=== PATIENT | female | born 1945 | race Caucasian/White ===

== ENCOUNTER 2019-07-14 18:09 | Inpatient (IN) | payer OTHER, MEDICAID ==
[~2019-07-14] VITALS: Ht 167.6 cm; Wt 82.4 kg
[2019-07-14 21:00] VITALS: BP 171/65
--- NOTE | 2019-07-14 21:00 | NUR ---
DIRECT ADMIT FROM [facility];ANEL MADE AWARE BECAUSE THE PATIENT IS EXPERIENCING LEFT FOOT PAIN AND NEEDS PAIN MEDICATION ORDERED. PT ALSO WANTS A SLEEPING PILL. PT CAME WITH ZERO ORDERS.
[2019-07-14 22:36] VITALS: BP 171/65
[2019-07-14] MEDS ORDERED: ACETAMINOPHEN 325 MG TAB PO PRN (22:45)
[2019-07-14] MEDS ORDERED: DEXTROSE (50%) 50ML SYRG IV PRN (22:45)
[2019-07-14] MEDS ORDERED: ONDANSETRON HCL 4 MG/2 ML VIAL IV PRN (22:45)
[2019-07-14 23:23] LABS: Eosinophils # (auto) 0.2 uL; Lymphocytes # (auto) 1.3 uL; Lymphocytes % (auto) 8.9 % (10.0-50.0)
[2019-07-14 23:26] LABS: Basophils # (auto) 0.2 uL; Basophils % (auto) 1.3 % (0.0-2.0); Eosinophils % (auto) 1.4 % (0.0-7.0); Hematocrit 30.5 % (36.0-46.0); Hemoglobin 10.1 g/dL (12.2-16.2); Mean Corpuscular Hemoglobin 28.6 pg (28.0-32.0); Mean Corpuscular Hgb Conc. 32.9 g/dL (32.0-36.0); Mean Corpuscular Volume 86.7 fL (80.0-100.0); Monocytes # (auto) 0.8 uL; Monocytes % (auto) 5.5 % (0.0-12.0); Neutrophils # (auto) 12.2 uL; Neutrophils % (auto) 82.9 % (37.0-80.0); Platelet Count (auto) 474 10^3/uL (140-450); Red Blood Cells 3.52 10^6/uL (4.0-5.20); Red Cell Distribution Width 15.9 % (11.8-14.3); White Blood Cell 14.7 10^3/uL (4.4-10.8)
[2019-07-14 23:40] LABS: Albumin 2.5 g/dL (3.4-5.0); BUN/Creatinine Ratio 25.9; Calcium 8.7 mg/dL (8.5-10.1); Potassium 4.5 mmol/L (3.5-5.1)
[2019-07-14 23:43] LABS: Bilirubin, Total 0.3 mg/dL (0.2-1.0); Total Protein 7.5 g/dL (6.4-8.2)
[2019-07-14] MEDS: HYDROcodone-ACET 5/325MG TAB PO PRN (23:46)
[2019-07-14] MEDS: TEMAZEPAM 15 MG CAP PO PRN (23:46)
[2019-07-14] MEDS ORDERED: METF-370 PO (23:47)
[2019-07-14] MEDS ORDERED: HYDR-531 PO (23:47)
[2019-07-15 00:05] LABS: CRP High Sensitivity 13.5 mg/dL (< 0.3)
--- NOTE | 2019-07-15 00:32 | NUR ---
WOUND CULTURE COLLECTED AND SENT;PHOTOGRAPHS TAKEN;NEW DRESSING APPLIED TO LEFT FOOT.
--- NOTE | 2019-07-15 03:00 | NUR ---
PT TRANSPORTED TO RADIOLOGY FOR CT SCAN OF LEFT FOOT.
--- NOTE | 2019-07-15 03:34 | NUR ---
PT BACK FROM RADIOLOGY;NEW DRESSING APPLIED.
[2019-07-15] MEDS: ACCU-CHEK COMFORT CURVE STRIP VI SCH ×4 (04:37→18:05)
[2019-07-15] MEDS: InsuLIN REG 1unit/0.01ml Soln (100units/ml) SC SCH ×4 (04:45→18:06)
[2019-07-15] MEDS: PANTOPRAZOLE 40 MG TAB PO SCH (04:46)
[2019-07-15] MEDS: HYDROcodone-ACET 5/325MG TAB PO PRN ×3 (04:47→20:02)
--- NOTE | 2019-07-15 05:08 | NUR ---
PT HAD LARGE BM IN THE BED;HANSEL CARE AND NEW LINEN. PT BACK IN BED.
[2019-07-15 05:38] VITALS: BP 167/72
[2019-07-15] MEDS: GABAPENTIN 400 MG CAP PO SCH ×3 (07:59→21:46)
[2019-07-15] MEDS ORDERED: VANCOMYCIN PER PHARMACY 0 MG IV SCH (08:45)
[2019-07-15] MEDS ORDERED: amLODIPine BESYLATE 5 MG TAB PO ONE (08:45)
[2019-07-15 08:50] VITALS: BP 181/73
[2019-07-15] MEDS ORDERED: cefTRIAXone 1GM/50ML D5W 50 ML IV SCH (09:00)
--- NOTE | 2019-07-15 09:00 | NUR ---
DR. MONCADA WAS IN TO SEE PT AND LEFT NEW ORDERS. PT NPO FOR POSSIBLE SURGERY AFTER 1700.
[2019-07-15] MEDS: metroNIDAZOLE 500MG/100ML 100 ML IV SCH ×2 (09:14→17:58)
[2019-07-15] MEDS: ENOXAPARIN SOD 40 MG/0.4 ML SYRINGE SC SCH (09:15)
[2019-07-15] MEDS: SILVER SULFADIAZINE 1 % TOPICAL CREAM 50GM TOP SCH (09:16)
[2019-07-15 09:21] LABS: Basophils # (auto) 0.1 uL; Eosinophils # (auto) 0 uL; Eosinophils % (auto) 0.3 % (0.0-7.0); Lymphocytes # (auto) 1.4 uL
[2019-07-15 09:22] LABS: Basophils % (auto) 0.5 % (0.0-2.0); Hematocrit 28.6 % (36.0-46.0); Hemoglobin 9.3 g/dL (12.2-16.2); Lymphocytes % (auto) 10.2 % (10.0-50.0); Mean Corpuscular Hemoglobin 28.2 pg (28.0-32.0); Mean Corpuscular Hgb Conc. 32.4 g/dL (32.0-36.0); Mean Corpuscular Volume 86.9 fL (80.0-100.0); Monocytes # (auto) 0.7 uL; Monocytes % (auto) 5.5 % (0.0-12.0); Neutrophils # (auto) 11.4 uL; Neutrophils % (auto) 83.5 % (37.0-80.0); Platelet Count (auto) 469 10^3/uL (140-450); Red Blood Cells 3.29 10^6/uL (4.0-5.20); Red Cell Distribution Width 15.6 % (11.8-14.3); White Blood Cell 13.7 10^3/uL (4.4-10.8)
[2019-07-15] MEDS ORDERED: INSULIN LANTUS (GLARGINE) 1 /0.01ml (100units/ml) SC ONE (09:30)
[2019-07-15 09:37] LABS: INR 0.95 (0.9-1.15); Partial Thromboplastin Time 30.4 sec (23.64-32.05)
[2019-07-15 09:51] LABS: BUN/Creatinine Ratio 20.2; Calcium 8.1 mg/dL (8.5-10.1); Potassium 4.4 mmol/L (3.5-5.1)
[2019-07-15] MEDS ORDERED: HCTZ 25 MG TAB PO SCH (10:00)
[2019-07-15] MEDS ORDERED: LEVOFLOXACIN 500MG 100 ML IV SCH (10:00)
[2019-07-15] MEDS ORDERED: amLODIPine BESYLATE 5 MG TAB PO SCH (10:00)
--- NOTE | 2019-07-15 11:45 | NUR ---
WOUND CARE NOTE: IN TO SEE PATIENT AT THIS TIME PER WOUND CARE CONSULT REQUEST. PATIENT NOTED TO HAVE WOUND UPON ADMIT. WOUND CONSULT ORDERED, WOUND PHOTOS TAKEN AT THAT TIME BY BEDSIDE NURSE FOR REFERENCE. PATIENT ADMITTED TO [facility] WITH DIAGNOSIS OF LEFT CALCANEOUS FRACTURE, LLE CELLULITIS. CURRENT DANTE SCORE IS 17. PATIENT HAS ORTHO AND PODIATRY CONSULTS PENDING. PATIENT STATES THAT SHE WAS WALKING AND FELT A SNAP TO HER LEFT FOOT. 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 WOUND MEASURES 4 X 3 X 2.4 CM. WOUND CULTURE WAS ALREADY COLLECTED AND SENT OFF TO LAB FOR PROCESSING. CLEANSED WOUND WITH NS, PATTED DRY WITH STERILE GAUZE. APPLIED THERAHONEY INTO OPEN WOUND BED AREAS. PACKED WOUND WITH 1/4 INCH PLAIN PACKING STRIP, LEAVING A TAIL OUT OF WOUND. COVERED WITH TELFA, WRAPPING FOOT/HEEL WITH KERLIX, STOCKINETTE. ELEVATED FOOT/HEEL UP ONTO PILLOW TO OFFLOAD PRESSURE. PATIENT HAS A DANTE SCORE OF 17. SHE CAN SELF TURN/REPOSITION SELF. NO OTHER WOUNDS NOTED. RECOMMEND: DAILY/PRN DRESSING CHANGE TO LEFT HEEL, ELEVATION OF LEFT FOOT/HEEL, DIETARY CONSULT, SKIN/WOUND CARE PLAN. WILL DEFER ALL OTHER RECOMMENDATIONS TO ORTHO AND PODIATRY. WOUND CARE TEAM WILL CONTINUE TO MONITOR. Addendum: 07/15/19 at 1850 by Yola Avila RN Amended: Links added.
[2019-07-15] MEDS: PIPERACILLIN-TAZOB 3.375GM 100 ML IV SCH ×3 (11:57→23:59)
[2019-07-15 13:44] VITALS: BP 151/72
--- NOTE | 2019-07-15 14:00 | NUR ---
NOTIFIED JET MAN BRAD AND N. RELIEF WORKER STEPHANIE THAT MRSA SCREEN WAS POSITIVE AND PT PUT ON CONTACT ISOLATION AND PT NOTIFIED OF SAME.
[2019-07-15] MEDS ORDERED: VANCOMYCIN 1,500 MG in D5W 5% 250 ML IV ONE (15:00)
[2019-07-15] MEDS: SODIUM CHLORIDE 0.9% 1,000 ML IV SCH (15:49)
[2019-07-15 16:43] VITALS: BP 144/61
--- NOTE | 2019-07-15 19:00 | NUR ---
DR. HOGAN WAS IN TO SEE PT AND MD LEFT NEW ORDERS.
[2019-07-15] MEDS: TEMAZEPAM 15 MG CAP PO PRN (21:46)
[2019-07-15] MEDS: MUPIROCIN 2% OINT 15gm or 22gm EACHNOSTRI SCH (21:47)
[2019-07-15 22:00] VITALS: BP 144/73
[2019-07-16] MEDS: ACCU-CHEK COMFORT CURVE STRIP VI SCH ×4 (00:12→18:08)
[2019-07-16] MEDS: InsuLIN REG 1unit/0.01ml Soln (100units/ml) SC SCH ×4 (00:12→18:08)
[2019-07-16] MEDS: metroNIDAZOLE 500MG/100ML 100 ML IV SCH ×3 (02:52→17:53)
[2019-07-16] MEDS: SODIUM CHLORIDE 0.9% 1,000 ML IV SCH ×2 (04:40→21:53)
[2019-07-16 05:00] VITALS: BP 148/76
[2019-07-16] MEDS: PIPERACILLIN-TAZOB 3.375GM 100 ML IV SCH ×3 (07:02→18:07)
[2019-07-16] MEDS: PANTOPRAZOLE 40 MG TAB PO SCH (07:02)
[2019-07-16] MEDS: HYDROcodone-ACET 5/325MG TAB PO PRN ×3 (07:02→21:24)
[2019-07-16] MEDS: GABAPENTIN 400 MG CAP PO SCH ×3 (07:02→21:07)
[2019-07-16 08:15] LABS: Basophils # (auto) 0.1 uL; Eosinophils # (auto) 0.4 uL; Eosinophils % (auto) 3.4 % (0.0-7.0); Hematocrit 27.4 % (36.0-46.0); Hemoglobin 9.2 g/dL (12.2-16.2); Lymphocytes # (auto) 2.1 uL; Mean Corpuscular Hemoglobin 28.9 pg (28.0-32.0); Mean Corpuscular Hgb Conc. 33.5 g/dL (32.0-36.0); Mean Corpuscular Volume 86.3 fL (80.0-100.0); Monocytes # (auto) 0.7 uL; Monocytes % (auto) 6.4 % (0.0-12.0); Neutrophils # (auto) 7.6 uL; Neutrophils % (auto) 70.2 % (37.0-80.0); Platelet Count (auto) 434 10^3/uL (140-450); Red Blood Cells 3.18 10^6/uL (4.0-5.20); White Blood Cell 10.9 10^3/uL (4.4-10.8)
[2019-07-16 08:31] LABS: BUN/Creatinine Ratio 22.6; Potassium 4.5 mmol/L (3.5-5.1)
[2019-07-16 09:00] VITALS: BP 135/61
[2019-07-16] MEDS: SILVER SULFADIAZINE 1 % TOPICAL CREAM 50GM TOP SCH (09:07)
[2019-07-16] MEDS: ENOXAPARIN SOD 40 MG/0.4 ML SYRINGE SC SCH (09:07)
[2019-07-16] MEDS: MUPIROCIN 2% OINT 15gm or 22gm EACHNOSTRI SCH ×2 (09:11→21:06)
[2019-07-16 09:30] VITALS: BP_SYST 131; BP_SYST 140; BP_DIAS 66; BP_DIAS 83
[2019-07-16] MEDS ORDERED: INSULIN LANTUS (GLARGINE) 1 /0.01ml (100units/ml) SC ONE (10:15)
[2019-07-16 13:00] VITALS: BP 131/66
--- NOTE | 2019-07-16 14:58 | NUR ---
NUTRITION CONSULT/ASSESSMENT NOTES Please refer to link notes of nutrition screen form filed under the intervention section of the plan of care for further details. Est. Needs: 1500 kcal to 1900 kcal (20-25 kcal/kgBW), 76 gms to 91 gms pro (1.0-1.2 gms/kgBW). Will continue to monitor pertinent labs and reassess nutrient need prn Thank you for this consult. Addendum: 07/16/19 at [address] Amended: Links added.
--- NOTE | 2019-07-16 15:00 | NUR ---
DRESSING TO LEFT FOOT DONE PER ORDER
[2019-07-16] MEDS: VANCOMYCIN 1,250 MG in D5W 5% 250 ML IV SCH (15:06)
[2019-07-16 17:00] VITALS: BP 139/52
--- NOTE | 2019-07-16 19:50 | NUR ---
Opening Shift Note Assumed care of patient, awake and alert, oriented x 4, follows direction. On room air with even and unlabored respirations. No S/S of distress or SOB. PICC to left upper arm intact and patent. Dressing to left foot clean, dry, and intact. Patient is able to turn independently in bed, sacrum intact, no redness noted. Bed low locked position with side rails up x 2 and call light within reach, bed alarm on. Instructed on POC and to call for assist PRN, will continue to monitor for changes Q1hr and PRN.
[2019-07-16 21:30] VITALS: BP 138/65
[2019-07-16] MEDS: INSULIN LANTUS (GLARGINE) 1 /0.01ml (100units/ml) SC SCH (21:57)
[2019-07-17] MEDS: ACCU-CHEK COMFORT CURVE STRIP VI SCH ×4 (00:03→18:19)
[2019-07-17] MEDS: PIPERACILLIN-TAZOB 3.375GM 100 ML IV SCH ×5 (00:03→18:19)
[2019-07-17] MEDS: InsuLIN REG 1unit/0.01ml Soln (100units/ml) SC SCH ×4 (00:03→18:19)
[2019-07-17] MEDS: metroNIDAZOLE 500MG/100ML 100 ML IV SCH ×3 (00:55→17:47)
[2019-07-17] MEDS: HYDROcodone-ACET 5/325MG TAB PO PRN ×3 (03:04→21:23)
[2019-07-17 05:05] VITALS: BP 159/71
[2019-07-17] MEDS: GABAPENTIN 400 MG CAP PO SCH ×3 (06:00→21:21)
[2019-07-17] MEDS: PANTOPRAZOLE 40 MG TAB PO SCH (06:09)
[2019-07-17] MEDS: hydrALAZINE HCL 20 MG/ML VL IV PRN (06:19)
[2019-07-17] MEDS: INSULIN LANTUS (GLARGINE) 1 /0.01ml (100units/ml) SC SCH ×2 (06:19→21:52)
--- NOTE | 2019-07-17 07:01 | NUR ---
Closing Note patient resting in bed with even and unlabored respirations, no s/s of distress. Bed low locked position with side rails up x 2 and call light within reach, bed alarm on. Endorsed care to day shift RN.
[2019-07-17 07:10] LABS: Basophils # (auto) 0.1 uL; Basophils % (auto) 0.8 % (0.0-2.0); Eosinophils # (auto) 0.3 uL; Eosinophils % (auto) 2.7 % (0.0-7.0); Hematocrit 26.9 % (36.0-46.0); Hemoglobin 8.9 g/dL (12.2-16.2); Lymphocytes # (auto) 1.9 uL; Lymphocytes % (auto) 15.7 % (10.0-50.0); Mean Corpuscular Hemoglobin 28.4 pg (28.0-32.0); Mean Corpuscular Hgb Conc. 32.9 g/dL (32.0-36.0); Mean Corpuscular Volume 86.3 fL (80.0-100.0); Monocytes # (auto) 0.8 uL; Monocytes % (auto) 6.5 % (0.0-12.0); Neutrophils # (auto) 9.1 uL; Neutrophils % (auto) 74.3 % (37.0-80.0); Platelet Count (auto) 436 10^3/uL (140-450); Red Blood Cells 3.11 10^6/uL (4.0-5.20); Red Cell Distribution Width 15.9 % (11.8-14.3); White Blood Cell 12.3 10^3/uL (4.4-10.8)
[2019-07-17 07:22] LABS: BUN/Creatinine Ratio 26.1; Calcium 7.9 mg/dL (8.5-10.1); Potassium 4.2 mmol/L (3.5-5.1)
--- NOTE | 2019-07-17 08:00 | NUR ---
Opening Shift Note Assumed care of patient, resting with eyes closed, wakes easily to sound/light touch. No S/S of distress/SOB or pain. Instructed on POC and to call for assist PRN, will continue to monitor for changes Q1hr and PRN.
[2019-07-17 09:01] VITALS: BP 182/60
[2019-07-17] MEDS: MUPIROCIN 2% OINT 15gm or 22gm EACHNOSTRI SCH ×2 (09:39→21:20)
[2019-07-17] MEDS: ENOXAPARIN SOD 40 MG/0.4 ML SYRINGE SC SCH (09:39)
[2019-07-17] MEDS: SILVER SULFADIAZINE 1 % TOPICAL CREAM 50GM TOP SCH (09:40)
[2019-07-17] MEDS: amLODIPine BESYLATE 5 MG TAB PO SCH (09:40)
[2019-07-17] MEDS ORDERED: IOHEXOL 350 MG/ML 100ML IJ ONE (09:46)
--- NOTE | 2019-07-17 10:03 | NUR ---
Angiogram Patient taken off floor in bed for Angiogram.
[2019-07-17] MEDS: SODIUM CHLORIDE 0.9% 1,000 ML IV SCH ×2 (11:00→21:52)
--- NOTE | 2019-07-17 12:17 | NUR ---
I&D PATIENT TAKEN DOWN IN BED FOR IRRIGATION AND DEBRIDEMENT OF LEFT FOOT ULCER. CONSENTS PRINTED OUT, SURGICAL CHECKLIST COMPLETED BY THIS NURSE. ALL PERSONAL BELONGINGS LEFT IN ROOM.
[2019-07-17 12:34] LABS: INR 0.97 (0.9-1.15); Partial Thromboplastin Time 31.9 sec (23.64-32.05)
[2019-07-17] MEDS ORDERED: ceFAZolin 1GM VL ONE (12:38)
[2019-07-17] MEDS ORDERED: MIDAZOLAM HCL 1MG/1ML-2 ML VIAL ONE (13:27)
[2019-07-17] MEDS ORDERED: PROPOFOL 10 MG/ML 20 ML IV ONE (13:27)
[2019-07-17] MEDS ORDERED: fentaNYL CITRATE 100 MCG/2 ML VL ONE (13:27)
[2019-07-17] MEDS ORDERED: SODIUM CHLORIDE LOCK 10 ML ONE (13:27)
[2019-07-17] MEDS ORDERED: ONDANSETRON HCL 4 MG/2 ML VIAL ONE (13:27)
[2019-07-17] MEDS ORDERED: fentaNYL CITRATE 100 MCG/2 ML VL IV PRN (14:00)
[2019-07-17] MEDS ORDERED: ACCU-CHEK COMFORT CURVE STRIP VI ONE (14:00)
[2019-07-17] MEDS ORDERED: HYDROmorphone HCL 2 MG/ML VL IV PRN (14:00)
[2019-07-17] MEDS ORDERED: METOCLOPRAMIDE HCL 5MG/ml INJ 2ml VIAL IV PRN (14:00)
[2019-07-17] MEDS ORDERED: MORPHINE SULFATE 4 MG/ML SYR/VIAL IV PRN (14:00)
[2019-07-17 14:10] VITALS: BP 160/83
[2019-07-17 14:48] LABS: Urine Bacteria NONE SEEN /hpf (None Seen); Urine Blood Negative /uL (Negative); Urine WBC 81 /hpf (0 - 5)
[2019-07-17] MEDS: VANCOMYCIN 1,250 MG in D5W 5% 250 ML IV SCH (15:38)
--- NOTE | 2019-07-17 16:16 | NUR ---
Assessment Pt is a 73 yr old alert and oriented female. Prior to admit, pt lives alone and received HH services through [facility] for med administration and PT. Pt's daughter Carolina Hager is her emergency contact at [phone]. Prior to admit, pt ambulated with the assistance of a walker. Pt was uses shower chair and commode to assist with ADL's. Pt currently receives meals on wheels weekly. pt admitted with foot pain and stated that her leg is infected and might be amputated. Pt expressed that she is very scared but will do what needs to be done to save her life. Pt does not have family close by to help out if she does have amputation. Pt's primary is Dr Stern. Pt currently receives [employer] income and [employer]. Pt has no interest in AD. Pt will need [facility] transportation upon d/c to get back home. Pt will need a resumption order for HH upon d/c. Pt's needs will be further assessed closer to d/c. Addendum: 07/17/19 at 1623 by RENNY QUAN Amended: Links added.
[2019-07-17 17:05] VITALS: BP 143/79
[2019-07-17 22:00] VITALS: BP 144/74
[2019-07-18] MEDS: PIPERACILLIN-TAZOB 3.375GM 100 ML IV SCH ×5 (00:02→23:52)
[2019-07-18] MEDS: ACCU-CHEK COMFORT CURVE STRIP VI SCH ×5 (00:02→23:54)
[2019-07-18] MEDS: InsuLIN REG 1unit/0.01ml Soln (100units/ml) SC SCH ×6 (00:07→23:53)
[2019-07-18] MEDS: metroNIDAZOLE 500MG/100ML 100 ML IV SCH ×3 (00:53→17:43)
[2019-07-18 05:00] VITALS: BP 137/63
[2019-07-18] MEDS: HYDROcodone-ACET 5/325MG TAB PO PRN ×3 (05:35→21:25)
[2019-07-18] MEDS: GABAPENTIN 400 MG CAP PO SCH ×3 (05:38→21:24)
[2019-07-18] MEDS: SODIUM CHLORIDE 0.9% 1,000 ML IV SCH ×2 (05:38→16:01)
[2019-07-18] MEDS: INSULIN LANTUS (GLARGINE) 1 /0.01ml (100units/ml) SC SCH ×2 (06:11→23:52)
[2019-07-18] MEDS: PANTOPRAZOLE 40 MG TAB PO SCH (06:11)
--- NOTE | 2019-07-18 08:44 | NUR ---
Opening Shift Note Assumed care of patient, awake and alert. No S/S of distress/SOB or pain. Patient c/o being hungry and saying clear liquids aren't enough. Patient tolerated crackers well. Diet changed to CCHO (her previous diet) as Dr. Garcia wrote "advance diet as tolerated". Called dietary to order chicken noodle soup. Instructed on POC and to call for assist PRN, will continue to monitor for changes Q1hr and PRN.
[2019-07-18 09:00] VITALS: BP 126/104
[2019-07-18] MEDS: MUPIROCIN 2% OINT 15gm or 22gm EACHNOSTRI SCH ×2 (09:38→21:24)
[2019-07-18] MEDS: amLODIPine BESYLATE 5 MG TAB PO SCH (09:39)
[2019-07-18] MEDS: SILVER SULFADIAZINE 1 % TOPICAL CREAM 50GM TOP SCH (09:39)
[2019-07-18 13:00] VITALS: BP 150/76
--- NOTE | 2019-07-18 13:20 | NUR ---
Dr. Castañeda at bedside Dr. Castañeda saw the patient and looked at the wound to her left foot. He informed the patient of the poor circulation below the knee and said he would like to try opening up the blood vessels for increased blood flow and see if there is improvement. He put in a radiology consult and requested a cardiology consult with Dr. Arias or Dr. Mckeon. Patient stated she has had this wound since April.
[2019-07-18] MEDS: VANCOMYCIN 1,250 MG in D5W 5% 250 ML IV SCH (16:00)
[2019-07-18 17:00] VITALS: BP_SYST 140; BP_SYST 154; BP_DIAS 72; BP_DIAS 74
[2019-07-18 22:00] VITALS: BP 148/73
[2019-07-19] MEDS: HYDROcodone-ACET 5/325MG TAB PO PRN ×3 (02:26→19:50)
[2019-07-19] MEDS: metroNIDAZOLE 500MG/100ML 100 ML IV SCH ×3 (02:27→16:41)
[2019-07-19] MEDS: SODIUM CHLORIDE 0.9% 1,000 ML IV SCH ×3 (02:28→23:41)
[2019-07-19 05:00] VITALS: BP 146/78
[2019-07-19] MEDS: GABAPENTIN 400 MG CAP PO SCH ×3 (06:49→22:41)
[2019-07-19] MEDS: PIPERACILLIN-TAZOB 3.375GM 100 ML IV SCH ×3 (06:49→18:28)
[2019-07-19] MEDS: InsuLIN REG 1unit/0.01ml Soln (100units/ml) SC SCH ×4 (06:49→23:41)
[2019-07-19] MEDS: ACCU-CHEK COMFORT CURVE STRIP VI SCH ×4 (06:50→23:14)
[2019-07-19] MEDS: PANTOPRAZOLE 40 MG TAB PO SCH (06:50)
[2019-07-19] MEDS: INSULIN LANTUS (GLARGINE) 1 /0.01ml (100units/ml) SC SCH ×2 (06:50→23:12)
[2019-07-19 08:17] VITALS: BP 153/77
[2019-07-19] MEDS: SILVER SULFADIAZINE 1 % TOPICAL CREAM 50GM TOP SCH ×2 (08:44→10:00)
[2019-07-19] MEDS: MUPIROCIN 2% OINT 15gm or 22gm EACHNOSTRI SCH ×2 (08:45→22:40)
[2019-07-19] MEDS: amLODIPine BESYLATE 5 MG TAB PO SCH (08:45)
--- NOTE | 2019-07-19 08:56 | NUR ---
PAGED DR MANZANO. THERE IS NO NEW ORDER FOR DRESSING CHANGES AFTER WOUND PROCEDURE TOOK PLACE. PREVIOUS ORDER BEGAN ON 07/15/19. PROCEDURE TOOK PLACE 07/17/19. PAGED Clara. TO ASK FOR ORDERS.
--- NOTE | 2019-07-19 08:57 | NUR ---
MORNING MEDICATION ADMINISTERED EARLY DUE TO ELEVATED BP 153/77mmHG
--- NOTE | 2019-07-19 11:15 | NUR ---
DR. MANZANO CALLED BACK. Yossi STATED HE DOES NOT HAVE ORDERS FOR DAILY DRESSING CHANGES, HE ORDERED A WOUND VAC. PER REPORT WOUND VAC WAS NOT PLACED DUE TO WOUND CARE SEE IT CONTRAINDICATED. DR. MANZANO STATED HE CONSULTED DR NDIAYE AND TO CALL M.Walt TO INQUIRE ABOUT WOUND CARE.
--- NOTE | 2019-07-19 11:18 | NUR ---
CALLED DR. NDIAYE OFFICE, SPOKE TO DENYS, LEFT A MESSAGE WITH STAFF MEMBER THAT M.D. IS NEEDED FOR WOUND CARE RECOMMENDATIONS AND ORDERS.
[2019-07-19 12:25] VITALS: BP 151/70
[2019-07-19] MEDS: VANCOMYCIN 1,250 MG in D5W 5% 250 ML IV SCH (12:46)
--- NOTE | 2019-07-19 13:20 | NUR ---
DR OWENS AT BEDSIDE. STATED NO FURTHER MEDICAL INTERVENTION IS NEEDED. WOUND VAC NOT NECESSARY AT THIS TIME. DAILY DRESSING CHANGE WITH XEROFORM. PATIENT IS TO GO FOR ANGIOGRAM/PLASTY PROCEDURE ON WEDNESDAY. CONTACT M.Walt. WITH RESULTS.
[2019-07-19 13:23] LABS: Eosinophils # (auto) 0.2 uL; Monocytes # (auto) 0.7 uL; Neutrophils # (auto) 13.1 uL; White Blood Cell 15.7 10^3/uL (4.4-10.8)
[2019-07-19 13:24] LABS: Basophils # (auto) 0.1 uL; Basophils % (auto) 0.9 % (0.0-2.0); Eosinophils % (auto) 1.4 % (0.0-7.0); Hematocrit 30.2 % (36.0-46.0); Lymphocytes # (auto) 1.5 uL; Lymphocytes % (auto) 9.8 % (10.0-50.0); Mean Corpuscular Hemoglobin 28.6 pg (28.0-32.0); Mean Corpuscular Hgb Conc. 33.1 g/dL (32.0-36.0); Mean Corpuscular Volume 86.3 fL (80.0-100.0); Monocytes % (auto) 4.5 % (0.0-12.0); Neutrophils % (auto) 83.4 % (37.0-80.0); Red Cell Distribution Width 16.3 % (11.8-14.3)
--- NOTE | 2019-07-19 13:35 | NUR ---
DR KEMP AT BEDSIDE DISCUSSING POC WITH PATIENT AND UPCOMING PROCEDURE. PATIENT VERBALIZED UNDERSTANDING.
[2019-07-19 13:49] LABS: Albumin 2.4 g/dL (3.4-5.0); BUN/Creatinine Ratio 19.8; Calcium 8.3 mg/dL (8.5-10.1); Magnesium 1.9 mg/dL (1.6-2.6); Potassium 4.9 mmol/L (3.5-5.1)
[2019-07-19 13:53] LABS: Bilirubin, Total 0.3 mg/dL (0.2-1.0); Total Protein 7.2 g/dL (6.4-8.2)
[2019-07-19 14:09] LABS: Platelet Count (auto) 710 10^3/uL (140-450)
--- NOTE | 2019-07-19 14:37 | NUR ---
WOUND CARE COMPLETED PER DR. OWENS ORDERS PATIENT TOLERATING PROCEDURE WITHOUT S/S OF DISTRESS
[2019-07-19 16:28] VITALS: BP 155/74
[2019-07-19] MEDS: hydrALAZINE HCL 20 MG/ML VL IV PRN (16:42)
--- NOTE | 2019-07-19 17:13 | NUR ---
Followup with pt regarding possible placement per MD request. Per pt she "doesnt like those places". Pt states she has home health and would need a walker with a seat. Also states she may have a friend come in for a week. Discussed with pt the safety issues involved if she is unable to prepare meals and transfer to the bathroom and how rehab may be beneficial in getting her back to an independent state. Pt wants to work with PT here and I will assess post PT eval for completion of d/c plan to home vs SNF.
--- NOTE | 2019-07-19 18:46 | NUR ---
PICC LINE FOUND DANGLING ON PATIENT. SECUREMENT DEVICE ALMOST COMPLETELY OFF. PICC NOTED TO BE NO LONGER SECURED, AND MAY HAVE COMPROMISED PLACEMENT. ANTIBIOTICS INFUSING IMMEDIATELY STOPPED. CHARGE NURSE TORIN CONTACTED. SMOKING PIPE MAKER STATED TO UP DATE HOSPITALIST OF FINDINGS AND ASK FOR FURTHER ORDERS. PICC IS TO REMAIN UNUSED UNTIL FURTHER INSTRUCTION. PICC LINE SECURED WITH TEGADERM AND TAPE.
--- NOTE | 2019-07-19 19:01 | NUR ---
PAGED HOSPITALIST TO ASK FOR ORDERS ON PICC LINE. PICC LINE PLACEMENT MY HAVE BEEN COMPROMISED. WILL AWAIT MD CALL BACK
--- NOTE | 2019-07-19 19:12 | NUR ---
HOSPITALIST ROLANDO CALLED BACK. NEW ORDER PLACED FOR CHEST XRAY TO CONFIRM PLACEMENT. STATED TO ATTEMPT TO DRAW BLOOD FROM PICC. WILL ENDORSE BLOOD DRAW TO NOC RN
--- NOTE | 2019-07-19 19:55 | NUR ---
Opening Shift Note Assumed care of patient, awake and alert, oriented x 4. On room air with even and unlabored respirations, no S/S of distress or SOB. Kerlix dressing noted to left foot. PICC secured and intact to left upper arm, pending CXR results for placement. Bed low locked position with side rails up x 2 and call light within reach, bed alarm on. Instructed on POC and to call for assist PRN, will continue to monitor for changes Q1hr and PRN.
--- NOTE | 2019-07-19 20:00 | NUR ---
CXR Resulted - Repositioning Needed Informed seamstress fitter Alex. PICC nurse unavailable at this time, PICC consult placed for repositioning.
[2019-07-19 21:55] VITALS: BP 85/17
--- NOTE | 2019-07-19 23:00 | NUR ---
IV insertion IV access obtained, via clean sterile technique by inserting 22 gauge catheter at right forearm after 1 attempt(s). IV secured properly. No trauma to site. Patient tolerated well. NOTE:
[2019-07-20] MEDS: PIPERACILLIN-TAZOB 3.375GM 100 ML IV SCH ×2 (00:16→06:33)
[2019-07-20] MEDS: VANCOMYCIN 1,250 MG in D5W 5% 250 ML IV SCH (01:14)
[2019-07-20] MEDS: metroNIDAZOLE 500MG/100ML 100 ML IV SCH ×3 (01:56→19:18)
[2019-07-20] MEDS: HYDROcodone-ACET 5/325MG TAB PO PRN ×4 (03:37→19:22)
[2019-07-20 05:00] VITALS: BP 143/69
[2019-07-20] MEDS: GABAPENTIN 400 MG CAP PO SCH ×3 (06:00→21:41)
[2019-07-20] MEDS: InsuLIN REG 1unit/0.01ml Soln (100units/ml) SC SCH ×3 (06:33→18:00)
[2019-07-20] MEDS: INSULIN LANTUS (GLARGINE) 1 /0.01ml (100units/ml) SC SCH ×2 (06:34→21:41)
[2019-07-20] MEDS: ACCU-CHEK COMFORT CURVE STRIP VI SCH ×3 (06:34→18:00)
[2019-07-20] MEDS: PANTOPRAZOLE 40 MG TAB PO SCH (06:38)
[2019-07-20] MEDS: SODIUM CHLORIDE 0.9% 1,000 ML IV SCH (07:45)
[2019-07-20 09:00] VITALS: BP 127/83
[2019-07-20] MEDS: amLODIPine BESYLATE 5 MG TAB PO SCH (09:26)
[2019-07-20] MEDS: MUPIROCIN 2% OINT 15gm or 22gm EACHNOSTRI SCH (09:26)
[2019-07-20] MEDS: SILVER SULFADIAZINE 1 % TOPICAL CREAM 50GM TOP SCH (09:28)
[2019-07-20] MEDS: ENOXAPARIN SOD 40 MG/0.4 ML SYRINGE SC SCH (10:25)
[2019-07-20] MEDS: LEVOFLOXACIN 750MG 150 ML IV SCH (10:26)
[2019-07-20] MEDS: LINEZOLID 600MG/300ML 300 ML IV SCH ×2 (10:26→21:40)
[2019-07-20 12:37] VITALS: BP 136/65
--- NOTE | 2019-07-20 12:46 | NUR ---
Nutrition Follow-up Notes Wt.: 87.7 kg Pt was with MD at bedside. per records pt with gangrene on foot and seen by sx. per records pt to have angiogram for possible osteomyelitis. pt with no distress noted currently on CCHO 60 gm/meal diet with adequate PO of 75% x 5 per RN doc Est. Needs: 1500 kcal to 1900 kcal (20-25 kcal/kgBW), 76 gms to 91 gms pro (1.0-1.2 gms/kgBW). Will continue to monitor pertinent labs and reassess nutrient need prn Labs: GLU 361 H, BUN 19 H, CA 8.3 L., TG 206 H Skin: Saw scale 20 low risk gangrene on foot per RN doc. refer to WC notes for details GI: Pt had 2 BM today per rn documentation specialist. PES: Altered nutrition related lab values r/t current/chronic medical condition aeb hyperglycemia, elev. BUN, HbA1c, hypocalcemia and mod hypoalbuminemia Will continue to monitor PO intake, skin status, pertinent labs and weight trend. F/u in 3-5 days. Rec.: 1.) Consider daily MVI with minerals and Asc acid 500 mgs BID prn. 2.) Continue close supervision and feeding assistance prn during meals. 3.) Refer to CDE/RD for further nutrition education and weight monitoring upon discharged. 4.) Continue current plan of care.
--- NOTE | 2019-07-20 13:00 | NUR ---
WOUND CARE NOTE: SPOKE WITH DR OWENS ABOUT WOUND VAC PLACEMENT ORDER. PER DR. OWENS WOUND VAC FOR THE PATIENT IS CONTRAINDICATED. HE HAS TAKEN OVER THE CASE FROM DR. MANZANO, PER DR. MANZANO REQUEST. NO WOUND VAC WILL BE PLACED AT THIS TIME. WOUND CARE TEAM WILL CONTINUE TO MONITOR.
--- NOTE | 2019-07-20 14:00 | NUR ---
DRESSING DRESSING CHANGED PER MD ORDER.
[2019-07-20] MEDS ORDERED: LIDOCAINE 1% (LOCAL ANESTH.) PF 5ml SDV ID ONE (14:15)
--- NOTE | 2019-07-20 14:20 | NUR ---
PICC line placement Patient other educated on need for PICC line replacement. All risks and benefits explained and all questions and concerns addressed prior to procedure. Noted past medical history and allergies with no contraindications. INR and Plt counts within acceptable range. 4 fr PICC line exchanged over a guidewire with sterile technique using [employer] US and Tip Location System. Old PICC line was removed in tact, 40 cm in length. Sterile technique with maximum barrier precautions utilized. New PICC line inserted over guidewire easily. Blood return obtained from lumen and flushed easily with NS using proper technique. PICC secured with Stat-lock; biodisc and occlusive dressing applied. Stat portable chest x-ray obtained for PICC tip placement. *Baseline Arm Circumference 33 cm. Internal length 40 cm. External length 0 cm. PICC lot #[id number]
--- NOTE | 2019-07-20 16:41 | NUR ---
Okay to use PICC line Xray completed and reviewed. Okay to use PICC line.
[2019-07-20 17:09] VITALS: BP 148/108
[2019-07-20] MEDS: SODIUM CHLOR 0.9% PF (SALINE LOCK) 10ML VIAL/SYR IV SCH (21:38)
[2019-07-20] MEDS ORDERED: MORPHINE SULFATE 4 MG/ML SYR/VIAL IV PRN (21:45)
[2019-07-20 22:00] VITALS: BP 126/53
[2019-07-21] MEDS: InsuLIN REG 1unit/0.01ml Soln (100units/ml) SC SCH ×5 (00:09→22:17)
[2019-07-21] MEDS: ACCU-CHEK COMFORT CURVE STRIP VI SCH ×5 (00:09→22:17)
[2019-07-21] MEDS: HYDROcodone-ACET 5/325MG TAB PO PRN ×4 (00:11→21:11)
[2019-07-21] MEDS: TEMAZEPAM 15 MG CAP PO PRN ×2 (00:11→23:00)
[2019-07-21] MEDS: metroNIDAZOLE 500MG/100ML 100 ML IV SCH ×3 (00:18→17:46)
--- NOTE | 2019-07-21 03:26 | NUR ---
PT CARE RESUMED REPORT RECEIVED FROM JOANIE RN, PATIENT CURRENTLY SLEEPING, BREATHING EVEN AND UNLABORED, ON ROOM AIR, EASILY AWAKENED VIA VERBAL AND TACTILE STIMULI, PICC 1 LUMEN NOTED TO JOHNATHAN, SITE PATENT AND BENIGN, 22G NOTED TO RIGHT FA, DRESSING TO RIGHT HEEL CDI, LLE ELEVATED ON PILLOW, PT TOLERATED WELL, NO C/O PAIN AT THIS TIME, CALL LIGHT WITHIN REACH, BED ALARM ACTIVATED, CONT CARE
[2019-07-21 05:00] VITALS: BP 123/59
[2019-07-21] MEDS: GABAPENTIN 400 MG CAP PO SCH ×3 (05:32→21:09)
[2019-07-21 06:10] LABS: Basophils # (auto) 0.1 uL; Basophils % (auto) 0.9 % (0.0-2.0); Eosinophils # (auto) 0.3 uL; Eosinophils % (auto) 2.8 % (0.0-7.0); Hematocrit 26.9 % (36.0-46.0); Hemoglobin 8.8 g/dL (12.2-16.2); Lymphocytes # (auto) 1.9 uL; Mean Corpuscular Hgb Conc. 32.8 g/dL (32.0-36.0); Mean Corpuscular Volume 85.2 fL (80.0-100.0); Monocytes # (auto) 0.8 uL; Monocytes % (auto) 6.9 % (0.0-12.0); Neutrophils # (auto) 8.2 uL; Neutrophils % (auto) 72.4 % (37.0-80.0); Platelet Count (auto) 418 10^3/uL (140-450); Red Blood Cells 3.16 10^6/uL (4.0-5.20); Red Cell Distribution Width 16.4 % (11.8-14.3); White Blood Cell 11.3 10^3/uL (4.4-10.8)
--- NOTE | 2019-07-21 06:10 | NUR ---
ACTIVITY PT ASSISTED TO CHAIR, PATIENT TOLERATED WELL, BED LINEN CHANGED, TABLE PLACED IN FRONT FOR FALL RISK AND CALL LIGHT WITHIN REACH, CONT TO CLOSELY MONITOR
[2019-07-21] MEDS: INSULIN LANTUS (GLARGINE) 1 /0.01ml (100units/ml) SC SCH ×2 (07:25→22:16)
[2019-07-21] MEDS: PANTOPRAZOLE 40 MG TAB PO SCH (07:25)
[2019-07-21 08:00] VITALS: BP 132/79
[2019-07-21 08:17] VITALS: BP 132/79
--- NOTE | 2019-07-21 08:40 | NUR ---
PATIENT TAKEN TO TRAY CHECKER PT TAKEN VIA BED, PT AXOX4, NO DISTRESS NOTED AT THIS TIME, IV PATENT TO JOHNATHAN, SITE PATENT AND BENIGN, REPORT GIVEN TO LEEANN GARZA, CONT CARE
[2019-07-21] MEDS ORDERED: fentaNYL CITRATE 100 MCG/2 ML VL ONE (09:10)
[2019-07-21] MEDS ORDERED: SODIUM CHL 0.9% 50 ML ONE ×2 (09:10→10:44)
[2019-07-21] MEDS ORDERED: ANGIOMAX 250 MG VIAL IV ONE ×2 (09:10→10:44)
[2019-07-21] MEDS ORDERED: MIDAZOLAM HCL 1MG/1ML-2 ML VIAL ONE (09:10)
[2019-07-21] MEDS ORDERED: IOHEXOL 350 MG/ML 100ML IJ ONE ×2 (09:12→10:47)
[2019-07-21] MEDS ORDERED: LIDOCAINE 2%HCL (LOCAL ANESTH.) INJ 20ML MDV ONE (09:12)
[2019-07-21] MEDS ORDERED: VERAPAMIL 2.5MG/ML INJ 2ML VIAL IV ONE (09:59)
[2019-07-21] MEDS: SODIUM CHLOR 0.9% PF (SALINE LOCK) 10ML VIAL/SYR IV SCH ×2 (10:00→21:08)
[2019-07-21] MEDS: SILVER SULFADIAZINE 1 % TOPICAL CREAM 50GM TOP SCH (10:00)
[2019-07-21] MEDS: ENOXAPARIN SOD 40 MG/0.4 ML SYRINGE SC SCH (10:00)
--- NOTE | 2019-07-21 12:17 | NUR ---
PT 1st AM visit, patient was not in the room - sent to pathology laboratory aides teacher as per GREG Benedict. 2nd AM visit, patient still not in the room visit. Addendum: 07/21/19 at 1219 by JAZZY MIJARES PTT Amended: Links added.
--- NOTE | 2019-07-21 12:25 | NUR ---
PT BACK FROM CORPORATE SALES TRAINER S/P Angioplasty, Catheterization site assessed for any bleeding, redness or swelling. minx closure device in place, dressing CDI. Pedal pulses on affected leg assessed for positive tissue perfusion. Patient instructed on need to notify staff immediately if any pain, burning or wetness to site, and any lower back pain. All questions and concerns addressed, of all education and instruction. Patient instructed to remain in supine position until 1400, and to keep right lower extremity straight, pt verbalized understanding, call light within reach, bed alarm on, BS 111
[2019-07-21 13:00] VITALS: BP 134/63
--- NOTE | 2019-07-21 13:56 | NUR ---
PT Patient in the room during afternoon visit but PT deferred due to performed procedure. Addendum: 07/21/19 at 1358 by JAZZY MIJARES PTT Amended: Links added.
[2019-07-21] MEDS: LINEZOLID 600MG/300ML 300 ML IV SCH ×2 (14:07→21:08)
[2019-07-21] MEDS: LEVOFLOXACIN 750MG 150 ML IV SCH (14:07)
[2019-07-21] MEDS: amLODIPine BESYLATE 5 MG TAB PO SCH (14:08)
--- NOTE | 2019-07-21 16:19 | NUR ---
D/C Planning Per consult for home health physical therapy, wpund care, picc line and possible home IV Abx total 5 weeks. [employer] will be working on IV Abx. Contact [facility] Ph:) Fax:( [phone]) faxed medical records. Per Enrique from [facility] Pt has been accepted and service to start within 48hrs upon d/c day. Addendum: 07/21/19 at 1622 by BERNARD JOSEPH Amended: Links added.
--- NOTE | 2019-07-21 16:22 | NUR ---
D/C Planning Contact [facility] Ph:) Fax:) faxed medical records requesting authorization for home health. Per Jenni from [facility] authorization is [id number].
[2019-07-21 16:36] VITALS: BP 148/73
[2019-07-21 22:00] VITALS: BP 157/78
--- NOTE | 2019-07-22 00:48 | NUR ---
REPORT GIVEN TO MATTEO/RN TO ASSUME CARE OF PATIENT.
--- NOTE | 2019-07-22 00:48 | NUR ---
Assumed care of patient. Patient awake and alert. No S/S of distress/SOB or pain. Safety measures in place bed in lowest position, side rails x2 up, and call light within reach. Instructed on POC and to call for assist PRN, will continue to monitor for changes Q1hr and PRN.
[2019-07-22] MEDS: metroNIDAZOLE 500MG/100ML 100 ML IV SCH ×3 (00:56→17:07)
[2019-07-22] MEDS: HYDROcodone-ACET 5/325MG TAB PO PRN ×5 (01:13→22:09)
[2019-07-22 05:00] VITALS: BP 138/63
[2019-07-22] MEDS: GABAPENTIN 400 MG CAP PO SCH ×3 (05:30→21:34)
[2019-07-22] MEDS: InsuLIN REG 1unit/0.01ml Soln (100units/ml) SC SCH ×3 (05:35→17:44)
[2019-07-22] MEDS: ACCU-CHEK COMFORT CURVE STRIP VI SCH ×3 (05:35→17:44)
--- NOTE | 2019-07-22 05:43 | NUR ---
Patient's blood sugar 153; patient refused 2 units Insulin Regular stating she would be receiving Lantus. Addendum: 07/22/19 at 0547 by MATTEO DASH RN RN Patient educated on risk and benefits and verbalized understanding. Will continue to monitor.
[2019-07-22] MEDS: INSULIN LANTUS (GLARGINE) 1 /0.01ml (100units/ml) SC SCH ×2 (06:32→21:57)
[2019-07-22] MEDS: PANTOPRAZOLE 40 MG TAB PO SCH (06:32)
[2019-07-22 07:05] LABS: Basophils # (auto) 0.1 uL; Basophils % (auto) 1.1 % (0.0-2.0); Eosinophils # (auto) 0.2 uL; Eosinophils % (auto) 1.9 % (0.0-7.0); Hematocrit 25.7 % (36.0-46.0); Hemoglobin 8.6 g/dL (12.2-16.2); Lymphocytes # (auto) 1.7 uL; Lymphocytes % (auto) 15.1 % (10.0-50.0); Mean Corpuscular Hemoglobin 28.4 pg (28.0-32.0); Mean Corpuscular Hgb Conc. 33.3 g/dL (32.0-36.0); Mean Corpuscular Volume 85.3 fL (80.0-100.0); Monocytes # (auto) 0.9 uL; Monocytes % (auto) 7.9 % (0.0-12.0); Neutrophils # (auto) 8.4 uL; Platelet Count (auto) 415 10^3/uL (140-450); Red Blood Cells 3.02 10^6/uL (4.0-5.20); Red Cell Distribution Width 16.6 % (11.8-14.3); White Blood Cell 11.4 10^3/uL (4.4-10.8)
[2019-07-22 07:27] LABS: Calcium 7.9 mg/dL (8.5-10.1); Potassium 4.5 mmol/L (3.5-5.1)
--- NOTE | 2019-07-22 07:30 | NUR ---
Opening Shift Note Assumed care of patient, awake and alert. No S/S of distress/SOB or pain. Safety measures in place bed in lowest position, side rails x2 up, and call light within reach. Instructed on POC and to call for assist PRN, will continue to monitor for changes Q1hr and PRN.
[2019-07-22 07:33] LABS: BUN/Creatinine Ratio 21.1
[2019-07-22 08:59] VITALS: BP 146/69
[2019-07-22] MEDS: SODIUM CHLOR 0.9% PF (SALINE LOCK) 10ML VIAL/SYR IV SCH ×2 (09:33→22:00)
[2019-07-22] MEDS: LEVOFLOXACIN 750MG 150 ML IV SCH (09:33)
[2019-07-22] MEDS: amLODIPine BESYLATE 5 MG TAB PO SCH (09:34)
[2019-07-22] MEDS: ASPirin 81 mg TAB PO SCH (09:34)
[2019-07-22] MEDS: ENOXAPARIN SOD 40 MG/0.4 ML SYRINGE SC SCH (09:34)
[2019-07-22] MEDS: LINEZOLID 600MG/300ML 300 ML IV SCH ×2 (09:38→21:34)
[2019-07-22] MEDS: SILVER SULFADIAZINE 1 % TOPICAL CREAM 50GM TOP SCH (09:40)
--- NOTE | 2019-07-22 09:50 | NUR ---
DRESSING DRESSING CHANGED PER MD ORDER.
[2019-07-22 13:00] VITALS: BP 120/86
[2019-07-22 17:00] VITALS: BP 124/61
[2019-07-22] MEDS: Glucerna Carbsteady SHAKE Vanilla 8oz PO SCH (17:44)
[2019-07-22] MEDS ORDERED: Ensure HIGH Protein Chocolate 8oz Bottle PO SCH (18:00)
[2019-07-22 20:00] VITALS: BP 151/63
--- NOTE | 2019-07-22 20:00 | NUR ---
Opening Shift Note Assumed care of patient, awake and alert. No S/S of distress/SOB. Patient complains of left heel pain and bilateral pain to lower extremities. Dressing to left heel clean, dry and intact. Patient able to transfer to BSC with minimal assist. Instructed on POC and to call for assist PRN, will continue to monitor for changes Q1hr and PRN. Bed in low position and call light in reach.
[2019-07-22] MEDS: TEMAZEPAM 15 MG CAP PO PRN (21:35)
[2019-07-22 21:44] VITALS: BP 151/83
--- NOTE | 2019-07-22 22:00 | NUR ---
Patient medicated with [place] 5/325 mg. She states at home she takes [place] all throughout the night and she has fear that her pain may not be managed here. Patient informed of her order for Morphine. She declined Morphine and stated "It does nothing for me". Will continue to monitor patient's status.
[2019-07-23] MEDS: ACCU-CHEK COMFORT CURVE STRIP VI SCH ×4 (00:18→17:30)
[2019-07-23] MEDS: InsuLIN REG 1unit/0.01ml Soln (100units/ml) SC SCH ×4 (00:18→17:29)
[2019-07-23] MEDS: metroNIDAZOLE 500MG/100ML 100 ML IV SCH ×3 (00:49→17:16)
[2019-07-23] MEDS: HYDROcodone-ACET 5/325MG TAB PO PRN ×3 (01:21→16:00)
--- NOTE | 2019-07-23 05:20 | NUR ---
Patient crying and moaning. Pain rated 9/10 on 1-10 pain scale. Last dose of [place] given at 0201. Kaylah Sharma notified of patient's status. Received order to administer Dilaudid 0.5 mg IVP once. Patient medicated as ordered.
[2019-07-23 05:30] VITALS: BP 137/61
[2019-07-23] MEDS ORDERED: HYDROmorphone HCL 2 MG/ML VL IV ONE (06:00)
[2019-07-23] MEDS: GABAPENTIN 400 MG CAP PO SCH ×3 (06:04→22:17)
[2019-07-23] MEDS: PANTOPRAZOLE 40 MG TAB PO SCH (06:12)
[2019-07-23] MEDS: INSULIN LANTUS (GLARGINE) 1 /0.01ml (100units/ml) SC SCH ×2 (06:15→22:18)
--- NOTE | 2019-07-23 06:30 | NUR ---
Patient awake transferring to BSC. Patient denies pain at this time. Report given to day shift RN.
[2019-07-23 08:22] LABS: Basophils # (auto) 0.1 uL
[2019-07-23 08:24] LABS: Eosinophils # (auto) 0.2 uL; Eosinophils % (auto) 2.2 % (0.0-7.0); Lymphocytes # (auto) 1.7 uL; Mean Corpuscular Hemoglobin 27.7 pg (28.0-32.0); Mean Corpuscular Hgb Conc. 32.1 g/dL (32.0-36.0); Mean Corpuscular Volume 86.2 fL (80.0-100.0); Monocytes # (auto) 0.8 uL; Monocytes % (auto) 7.7 % (0.0-12.0); Neutrophils # (auto) 8.2 uL; Neutrophils % (auto) 74.1 % (37.0-80.0); Platelet Count (auto) 464 10^3/uL (140-450); Red Blood Cells 3.24 10^6/uL (4.0-5.20); Red Cell Distribution Width 16.8 % (11.8-14.3)
[2019-07-23] MEDS: Glucerna Carbsteady SHAKE Vanilla 8oz PO SCH ×3 (08:27→17:30)
--- NOTE | 2019-07-23 08:30 | NUR ---
Assisted the patient to the bedside commode.
--- NOTE | 2019-07-23 08:38 | NUR ---
Patient had a bowel movement on the bedside commode. Large, soft stools noted. Assisted the patient back to bed.
[2019-07-23 08:45] LABS: BUN/Creatinine Ratio 24.7; Calcium 8.1 mg/dL (8.5-10.1); Potassium 4.5 mmol/L (3.5-5.1)
--- NOTE | 2019-07-23 09:23 | NUR ---
Patient had another bowel movement on the bedside commode.
[2019-07-23 09:31] VITALS: BP 136/61
[2019-07-23] MEDS: ENOXAPARIN SOD 40 MG/0.4 ML SYRINGE SC SCH (10:00)
--- NOTE | 2019-07-23 10:18 | NUR ---
Patient stated her left ankle/foot pain level at 8/10 at this time. [place] 5/325 PO given for pain as ordered.
[2019-07-23] MEDS: ASPirin 81 mg TAB PO SCH (10:19)
[2019-07-23] MEDS: amLODIPine BESYLATE 5 MG TAB PO SCH (10:19)
[2019-07-23] MEDS: LEVOFLOXACIN 750MG 150 ML IV SCH (10:20)
[2019-07-23] MEDS: LINEZOLID 600MG/300ML 300 ML IV SCH ×2 (10:20→22:17)
[2019-07-23] MEDS: SODIUM CHLOR 0.9% PF (SALINE LOCK) 10ML VIAL/SYR IV SCH ×2 (10:20→22:17)
[2019-07-23] MEDS: SILVER SULFADIAZINE 1 % TOPICAL CREAM 50GM TOP SCH (10:20)
--- NOTE | 2019-07-23 10:30 | NUR ---
Changed the wound dressing on left ankle/foot. Cleansed with NS, pat dry with sterile gauze, applied Silvadene cream, applied Xeroform, Opti foam, rolled with Kerlix. Patient able to tolerate it.
--- NOTE | 2019-07-23 10:45 | NUR ---
PT Patient stated she had a rough night and requested from this PTT to comeback later to do PT. GREG Ocasio was notified of pt's request. Addendum: 07/23/19 at 1046 by JAZZY MIJARES PTT Amended: Links added.
--- NOTE | 2019-07-23 11:18 | NUR ---
Patient sitting up on chair. Dr. Mckeon at bedside. explained to patient she may get discharged home tomorrow, Wednesday, when the home IV antibiotics is set up.
--- NOTE | 2019-07-23 12:00 | NUR ---
WOUND CARE NOTE: Attempted to do weekly follow up with patient. Patient with a stage 4 pressure injury to left heel that was debrided by Dr Garcia. Since then, Dr Castañeda has taken over care of wound. Nursing with orders for dressing changes daily from Dr Castañeda. Nursing inquiring about previous order for wound vac ordered by Dr Garcia. All further wound care to be directed by Dr Castañeda. Plan is for patient to discharge home tomorrow 07/24/19 once IV antibiotics are set up. Dressing was changed earlier by nursing and patient refuses to have dressing removed for weekly photographs. Nursing to take photograph prior to discharge. RECOMMENDATIONS: Nursing to continue to follow wound/skin care orders given by Dr Castañeda; wound care team to follow.
[2019-07-23 14:07] VITALS: BP 131/57
--- NOTE | 2019-07-23 14:25 | NUR ---
Nutrition Follow-up Notes Wt.: 81.6 kg Pt was with MD at bedside. per records pt with gangrene s/p angioplasty. pt with no distress noted currently on CCHO 60 gm/meal diet with Glucerna 1 carton tid with adequate PO of 75% x 5 per RN doc Est. Needs: 1500 kcal to 1900 kcal (20-25 kcal/kgBW), 76 gms to 91 gms pro (1.0-1.2 gms/kgBW). Will continue to monitor pertinent labs and reassess nutrient need prn Labs: BUN 24 H, CA 8.1 L, GLU 108 H Skin: Saw scale 20 low risk gangrene on foot per RN doc. refer to WC notes for details GI: Pt had 1 BM today per supervisor inspection. PES: Altered nutrition related lab values r/t current/chronic medical condition aeb hyperglycemia, elev. BUN, HbA1c, hypocalcemia and mod hypoalbuminemia Will continue to monitor PO intake, skin status, pertinent labs and weight trend. F/u in 3-5 days. Rec.: 1.) Consider daily MVI with minerals and Asc acid 500 mgs BID prn. 2.) Continue close supervision and feeding assistance prn during meals. 3.) Refer to CDE/RD for further nutrition education and weight monitoring upon discharged. 4.) Continue current plan of care.
--- NOTE | 2019-07-23 14:50 | NUR ---
Assisted the patient back to bed.
--- NOTE | 2019-07-23 16:00 | NUR ---
Patient stated her left ankle/foot pain level at 9/10 at this time. [place] 5/325 PO given for pain as ordered. Patient requested if she can get the pain shot she had last night or early this morning, stated it's not Morphine. Patient is pertaining to the one time order of Dilaudid. Paged Dr. Mckeon.
--- NOTE | 2019-07-23 16:08 | NUR ---
Dr. Mckeon called back. made aware patient refused Morphine Sulf Inj for pain, requested for a one time order of Dilaudid Inj before bedtime; patient got a one time dose of Dilaudid Inj 0.5 mg as ordered at 0602 am from the awake overnight counselor RN. Dr. Mckeon ordered Dilaudid Inj 0.5 mg once PRN at bedtime.
[2019-07-23 17:00] VITALS: BP 141/55
--- NOTE | 2019-07-23 18:05 | NUR ---
Patient stated she lost her cellphone and a bottle of medicine from home on the day that she was admitted to the hospital. Patient verbalized "I gave up looking for it." Patient stated she gave the bottle of medicine to the ambulance personnel. [facility] personnel assisted looking for the cellphone in the patient's belongings bag, no cellphone or bottle of medicine found.
--- NOTE | 2019-07-23 19:20 | NUR ---
Opening Shift Note Assumed care of patient, awake and alert, oriented x 4, follows direction. On room air with even and unlabored respirations. No S/S of distress or SOB. PICC to left upper arm intact and patent. Dressing to left foot clean, dry, and intact with 07/23/19 date. Patient is able to turn independently in bed, sacrum intact, no redness noted. Bed low locked position with side rails up x 2 and call light within reach, bed alarm on, due to generalized weakness. Instructed on POC and to call for assist PRN, will continue to monitor for changes Q1hr and PRN.
[2019-07-23] MEDS ORDERED: HYDROmorphone HCL 2 MG/ML VL IV PRN (20:00)
[2019-07-23 22:00] VITALS: BP 118/45
--- NOTE | 2019-07-23 22:00 | NUR ---
IV removal Right forearm IV DC'd with clean sterile technique, catheter fully intact. Pressure dressing applied to site. Patient tolerated well. NOTE: Upon flushing IV to assess patency, IV not patent, reddened and mild swelling noted. Patient states pain at site.
[2019-07-24] MEDS: ACCU-CHEK COMFORT CURVE STRIP VI SCH ×4 (00:21→18:02)
[2019-07-24] MEDS: InsuLIN REG 1unit/0.01ml Soln (100units/ml) SC SCH ×4 (00:22→18:03)
[2019-07-24] MEDS: metroNIDAZOLE 500MG/100ML 100 ML IV SCH ×2 (00:50→08:29)
[2019-07-24] MEDS: HYDROcodone-ACET 5/325MG TAB PO PRN ×5 (01:14→20:42)
[2019-07-24] MEDS: TEMAZEPAM 15 MG CAP PO PRN (01:14)
[2019-07-24 04:59] VITALS: BP 116/70
[2019-07-24] MEDS: GABAPENTIN 400 MG CAP PO SCH ×3 (05:36→21:52)
[2019-07-24 06:09] LABS: Basophils # (auto) 0.1 uL; Eosinophils # (auto) 0.3 uL; Hemoglobin 8.9 g/dL (12.2-16.2); Lymphocytes # (auto) 1.6 uL; Mean Corpuscular Hemoglobin 28.5 pg (28.0-32.0)
[2019-07-24 06:11] LABS: Basophils % (auto) 0.9 % (0.0-2.0); Eosinophils % (auto) 2.3 % (0.0-7.0); Hematocrit 26.7 % (36.0-46.0); Lymphocytes % (auto) 13.3 % (10.0-50.0); Mean Corpuscular Hgb Conc. 33.3 g/dL (32.0-36.0); Mean Corpuscular Volume 85.4 fL (80.0-100.0); Monocytes # (auto) 0.8 uL; Monocytes % (auto) 6.8 % (0.0-12.0); Neutrophils # (auto) 9.2 uL; Neutrophils % (auto) 76.7 % (37.0-80.0); Platelet Count (auto) 491 10^3/uL (140-450); Red Blood Cells 3.13 10^6/uL (4.0-5.20); Red Cell Distribution Width 16.7 % (11.8-14.3)
[2019-07-24 06:22] LABS: BUN/Creatinine Ratio 25.2; Potassium 4.5 mmol/L (3.5-5.1)
[2019-07-24] MEDS: PANTOPRAZOLE 40 MG TAB PO SCH (06:34)
[2019-07-24] MEDS: INSULIN LANTUS (GLARGINE) 1 /0.01ml (100units/ml) SC SCH ×2 (06:35→22:10)
[2019-07-24] MEDS: Glucerna Carbsteady SHAKE Vanilla 8oz PO SCH ×3 (08:29→18:02)
[2019-07-24 09:00] VITALS: BP 128/70
[2019-07-24] MEDS ORDERED: SOD CHL 0.45% 1,000 ML IV ONE (09:30)
--- NOTE | 2019-07-24 09:50 | NUR ---
Faxed home IV ATB order to [facility].
[2019-07-24] MEDS: amLODIPine BESYLATE 5 MG TAB PO SCH (09:51)
[2019-07-24] MEDS: LEVOFLOXACIN 750MG 150 ML IV SCH (09:51)
[2019-07-24] MEDS: ASPirin 81 mg TAB PO SCH (09:51)
[2019-07-24] MEDS: LINEZOLID 600MG/300ML 300 ML IV SCH (09:51)
--- NOTE | 2019-07-24 09:51 | NUR ---
Patient stated she can have [place] before wound dressing change and physical therapy. [place] 5/325 PO given for pain.
[2019-07-24] MEDS: ENOXAPARIN SOD 40 MG/0.4 ML SYRINGE SC SCH (09:52)
[2019-07-24] MEDS: SILVER SULFADIAZINE 1 % TOPICAL CREAM 50GM TOP SCH (09:52)
[2019-07-24] MEDS: SODIUM CHLOR 0.9% PF (SALINE LOCK) 10ML VIAL/SYR IV SCH ×2 (09:52→21:52)
--- NOTE | 2019-07-24 10:10 | NUR ---
Photos taken of the left heel/foot. Cleansed the wound with NS, pat dry with sterile gauze, applied Silvadene cream, applied Xeroform, on Opti foam, rolled with Kerlix. Wound Care forms placed on the Wound care tray. Camera returned to [place].
--- NOTE | 2019-07-24 10:25 | NUR ---
Dr. Ramos at bedside.
--- NOTE | 2019-07-24 10:32 | NUR ---
Patient walking on the hallway, using a walker being assisted by Tolu from Physical Therapy.
--- NOTE | 2019-07-24 12:18 | NUR ---
I spoke with Cathie at [facility] [phone] extension [phone], provided her with additional clinical information as requested-she is working on verifying the insurance and will call me when the order is completed.
[2019-07-24] MEDS: metroNIDAZOLE 500 MG TAB PO SCH ×2 (15:13→21:52)
--- NOTE | 2019-07-24 15:32 | NUR ---
I spoke with Cathei at [facility]-she told me they are unable to take this patient due to [facility] being the primary insurance. I faxed home IV ATB order to [facility].
--- NOTE | 2019-07-24 16:45 | NUR ---
D/C Planning Per SS consult for home health physical therapy, wound care, picc line and possible home IV Abx Linzeolid 600 mg IVPB Q 12 hr for total of 5 weeks. [employer] [facility] will be working on IV Abx. Contact [facility] Ph:) Fax:( [phone]) faxed medical records. Per Enrique from [facility] Pt has been accepted and service to start within 48hrs upon d/c day.
[2019-07-24 17:00] VITALS: BP 130/73
--- NOTE | 2019-07-24 19:00 | NUR ---
Opening Shift Note Assumed care of patient, awake and alert. No S/S of distress/SOB or pain. Instructed on POC and to call for assist PRN, will continue to monitor for changes Q1hr and PRN.
[2019-07-24 21:25] VITALS: BP 153/111
[2019-07-24] MEDS: LINEZOLID 600MG TABLET PO SCH (21:52)
[2019-07-24] MEDS: HYDROmorphone HCL 2 MG/ML VL IV PRN (21:53)
--- NOTE | 2019-07-24 22:00 | NUR ---
Hospitalist paged: Hospitalist paged d/t patient having an elevated BP.
[2019-07-24] MEDS ORDERED: cloNIDine HCL 0.1 MG TAB PO ONE (22:30)
--- NOTE | 2019-07-24 22:33 | NUR ---
Hospitalist returned page: Hospitalist returned page and was updated on patient condition and situation. New orders received and verified.
[2019-07-25] MEDS: ACCU-CHEK COMFORT CURVE STRIP VI SCH ×3 (00:13→12:00)
[2019-07-25] MEDS: InsuLIN REG 1unit/0.01ml Soln (100units/ml) SC SCH ×3 (00:13→12:00)
[2019-07-25] MEDS: TEMAZEPAM 15 MG CAP PO PRN (00:13)
[2019-07-25] MEDS: HYDROcodone-ACET 5/325MG TAB PO PRN (04:40)
[2019-07-25 05:13] VITALS: BP 122/63
[2019-07-25] MEDS: GABAPENTIN 400 MG CAP PO SCH ×2 (05:40→18:28)
[2019-07-25] MEDS: metroNIDAZOLE 500 MG TAB PO SCH ×2 (05:40→18:28)
[2019-07-25 06:21] LABS: Basophils # (auto) 0.2 uL; Basophils % (auto) 1.7 % (0.0-2.0); Eosinophils # (auto) 0.3 uL; Eosinophils % (auto) 3.2 % (0.0-7.0); Hematocrit 26.5 % (36.0-46.0); Hemoglobin 8.9 g/dL (12.2-16.2); Lymphocytes # (auto) 1.6 uL; Lymphocytes % (auto) 17.2 % (10.0-50.0); Mean Corpuscular Hemoglobin 28.8 pg (28.0-32.0); Mean Corpuscular Hgb Conc. 33.4 g/dL (32.0-36.0); Mean Corpuscular Volume 86.1 fL (80.0-100.0); Monocytes # (auto) 0.6 uL; Monocytes % (auto) 6.7 % (0.0-12.0); Neutrophils # (auto) 6.5 uL; Neutrophils % (auto) 71.2 % (37.0-80.0); Platelet Count (auto) 506 10^3/uL (140-450); Red Blood Cells 3.08 10^6/uL (4.0-5.20); Red Cell Distribution Width 16.9 % (11.8-14.3); White Blood Cell 9.1 10^3/uL (4.4-10.8)
--- NOTE | 2019-07-25 06:25 | NUR ---
PRN wound care to left foot performed d/t dressing falling off. Patient tolerated intervention well with no discomfort or distress.
[2019-07-25] MEDS: INSULIN LANTUS (GLARGINE) 1 /0.01ml (100units/ml) SC SCH (06:30)
[2019-07-25] MEDS: PANTOPRAZOLE 40 MG TAB PO SCH (06:30)
[2019-07-25 06:37] LABS: Calcium 8.3 mg/dL (8.5-10.1); Potassium 4.6 mmol/L (3.5-5.1)
[2019-07-25 06:39] LABS: BUN/Creatinine Ratio 32.4
--- NOTE | 2019-07-25 07:30 | NUR ---
Opening Shift Note RECEIVED REPORT FROM NOC RN. Assumed care of patient, awake and alert. No S/S of distress/SOB or pain. BED IN LOWEST, LOCKED POSITION WITH SIDERAILS UP x2 AND CALL LIGHT WITHIN REACH. Instructed on POC and to call for assist PRN, will continue to monitor for changes Q1hr and PRN.
[2019-07-25 08:10] VITALS: BP 141/63
[2019-07-25] MEDS: Glucerna Carbsteady SHAKE Vanilla 8oz PO SCH ×3 (08:33→18:28)
[2019-07-25 09:18] VITALS: BP 141/63
[2019-07-25] MEDS ORDERED: HYDROcodone-ACET 7.5/325MG TAB PO PRN (09:30)
[2019-07-25] MEDS ORDERED: ASPI81CH43 PO (09:36)
[2019-07-25] MEDS ORDERED: INSLANTI SC (09:36)
[2019-07-25] MEDS ORDERED: AML5T PO (09:36)
[2019-07-25] MEDS ORDERED: GABA400C11 PO (09:36)
[2019-07-25] MEDS: LEVOFLOXACIN 750MG 150 ML IV SCH (09:52)
[2019-07-25] MEDS: ASPirin 81 mg TAB PO SCH (09:52)
[2019-07-25] MEDS: ENOXAPARIN SOD 40 MG/0.4 ML SYRINGE SC SCH (09:52)
[2019-07-25] MEDS: LINEZOLID 600MG TABLET PO SCH (09:52)
[2019-07-25] MEDS: SILVER SULFADIAZINE 1 % TOPICAL CREAM 50GM TOP SCH (09:53)
[2019-07-25] MEDS: SODIUM CHLOR 0.9% PF (SALINE LOCK) 10ML VIAL/SYR IV SCH (09:53)
[2019-07-25] MEDS: amLODIPine BESYLATE 5 MG TAB PO SCH (09:54)
--- NOTE | 2019-07-25 10:00 | NUR ---
PRN wound care to left foot performed d/t dressing BECOMING SATURATED WITH BLOOD AFTER PHYSICAL THERAPY AMBULATION. Patient tolerated intervention well with no discomfort or distress.
[2019-07-25] MEDS ORDERED: ATOR20TA50 PO (10:06)
[2019-07-25 13:00] VITALS: BP 141/62
--- NOTE | 2019-07-25 13:35 | NUR ---
DISCHARGE WOUND CARE PHOTO TAKEN, FORM FILLED OUT AND PLACED IN TRAY.
[2019-07-25 15:00] VITALS: BP 141/62
--- NOTE | 2019-07-25 15:18 | NUR ---
HOME ABX I called [facility] to see if pt can go home, had to leave message and await call back.
--- NOTE | 2019-07-25 15:41 | NUR ---
Hyun RN from [facility] called me back and stated that pt can go home. She will miss a 2200 tonoc but will make up on the back end. I informed primary RN Omi to remind pt that she needs to be home between the hrs of 1900 hrs and 2300 hrs for delivery of abxs. Hyun stated pt has someone to help hanging abxs. Informed PAULETTE Saini of the preceeding information and to arrange transportation to get pt home
--- NOTE | 2019-07-25 16:47 | NUR ---
D/C Planning Pt needs home transportation. Contact [facility] transport Ph:( [phone]) fax:) faxed transportation form requesting rock picker time to be between 16:30-17:00 via [facility]. Per Melba from [facility] transport transportation has been arrange with [facility]:) at 18:00 via [facility]. Informed GREG Braga.
[2019-07-25 16:52] VITALS: BP 170/70
--- NOTE | 2019-07-25 17:00 | NUR ---
INFORMATION FAXED TO [facility] FOR WHEELCHAIR.
[2019-07-25] MEDS: HYDROmorphone HCL 2 MG/ML VL IV PRN (17:38)
--- NOTE | 2019-07-25 18:40 | NUR ---
TRANSPORT AT BEDSIDE.
--- NOTE | 2019-07-25 18:58 | NUR ---
Discharge instructions given as ordered. Encourage to follow up with PMD as instructed. All questions and concerns addressed. Patient verbalized understanding. Medication reconciliation form completed and copy given to patient. Home medications held in Pharmacy returned to patient. PATIENT BEING D/C'D WITH PICC LINE IN PLACE. Patient taken to vehicle via wheelchair with all personal belongings, accompanied by staff and family member. No distress noted at time of departure.
--- NOTE | 2019-07-26 09:38 | NUR ---
D/C Planning Per consult for wheelchair. Spoke to GREG CRUZ on 07/25/19 regarding order to be fax to and [facility] for authorization. Jenni from [facility] advised me this morning 9:30am 07/26/19 Pt has been approved on 2018 [id number] for a rollator, bedside commode and wheelchair with [employer] equipment. Contact [facility] [facility] ) spoke to Libia. Per Libia from [employer] [facility] she has been trying to contact Pt. Advised Libia from [employer] Pt d/c yesterday. Per Libia from [employer] she will follow up with Pt to deliver equipment at home. Addendum: 07/26/19 at 0948 by BERNARD JOSEPH D/C Planning Per consult for wheelchair. Spoke to GREG CRUZ on 07/25/19 regarding order to be fax to and [facility] for authorization. Jenni from [facility] advised me this morning 9:30am 07/26/19 Pt has been approved on 2018 [id number] for a rollator, bedside commode and wheelchair with [facility] equipment. Contact [employer] [facility] ) spoke to Jacqueline. Per Jacqueline from [employer] [facility] she has been trying to contact Pt. Advised Jacqueline from [employer] Pt d/c yesterday. Per Jacqueline from [employer] she will follow up with Pt to deliver equipment at home.
--- NOTE | 2019-07-26 16:32 | NUR ---
D/C Planning Per consult for home health IV ABX with ramo Li that Pt missed 2 doses because Pt also on ZYVOX IV to start on 07/27/19. Contact [facility] ) Fax:( [phone]) faxed updated order. Per Joy order was received and service to start tomorrow 07/27/19.
== END 2019-07-25 19:00 | disposition home health service (06) | DRG 853 ==
LOC: TELE-WESTW 21:00 → WEST WING 07-16 19:57
PROVIDERS: ADMIT Internal Medicine; ATTEND Internal Medicine
PROC: 0QBM0ZZ Excision of Left Tarsal, Open Approach (ICD-10-PCS; principal; 2019-07-21)
PROC: 047U3ZZ Dilation of Left Peroneal Artery, Percutaneous Approach (ICD-10-PCS; 2019-07-21)
PROC: 047W3ZZ Dilation of Left Foot Artery, Percutaneous Approach (ICD-10-PCS; 2019-07-21)
PROC: B41G1ZZ Fluoroscopy of Left Lower Extremity Arteries using Low Osmolar Contrast (ICD-10-PCS; 2019-07-21)
DX: A41.9 Sepsis, unspecified organism (principal); A48.0 Gas gangrene; E43 Unspecified severe protein-calorie malnutrition; E11.52 Type 2 diabetes mellitus with diabetic peripheral angiopathy with gangrene; E87.1 Hypo-osmolality and hyponatremia; J98.11 Atelectasis; L03.116 Cellulitis of left lower limb; L97.429 Non-pressure chronic ulcer of left heel and midfoot with unspecified severity; M86.8X7 Other osteomyelitis, ankle and foot; E11.65 Type 2 diabetes mellitus with hyperglycemia; E11.69 Type 2 diabetes mellitus with other specified complication; E66.9 Obesity, unspecified; E11.40 Type 2 diabetes mellitus with diabetic neuropathy, unspecified; E11.22 Type 2 diabetes mellitus with diabetic chronic kidney disease; E11.51 Type 2 diabetes mellitus with diabetic peripheral angiopathy without gangrene; E11.621 Type 2 diabetes mellitus with foot ulcer; N18.9 Chronic kidney disease, unspecified; I12.9 Hypertensive chronic kidney disease with stage 1 through stage 4 chronic kidney disease, or unspecified chronic kidney disease; I16.0 Hypertensive urgency; Z79.84 Long term (current) use of oral hypoglycemic drugs; Z80.3 Family history of malignant neoplasm of breast; Z68.29 Body mass index [BMI] 29.0-29.9, adult
CPT/HCPCS: 36415; 37228; 71045; 73700; 75635; 75710; 76942; 77002; 80048; 80053; 80061; 80202; 81001; 82248; 82962; 83036; 83605; 83735; 85025; 85610; 85652; 85730; 86141; 86850; 86900; 86901; 87040; 87070; 87075; 87077; 87081; 87186; 87205; 93005; 93306; 97110; 97116; 97163; 97530; 99152; 99153; G0378; J0690; J1815; J1956; J2250; J2405; J2543; J2704; J3490; J7060